=== PATIENT | male | born 2000 ===

== ENCOUNTER 2025-07-12 00:54 | Emergency (ER) | payer MEDICAID ==
[~2025-07-12] VITALS: Ht 167.6 cm; Wt 69.7 kg
[2025-07-12 01:03] VITALS: BP 121/74; PULSE 50; RESP 16; TEMP 98.5; O2SAT 100
== END 2025-07-12 02:22 | disposition left against medical advice (07) ==
LOC: ER 00:56
DX: L23.7 Allergic contact dermatitis due to plants, except food (principal)